=== PATIENT | female | born 1955 | race Caucasian/White ===

== ENCOUNTER → 2023-12-20 | Outpatient (CLI) | payer MEDICARE ==
--- NOTE | 2023-12-21 07:39 | MM ---
Reason for Exam: Screening (asymptomatic). Patient History: Menarche at age 11. First Full-Term at age 15. Postmenopausal. Patient used Hormonal Contraceptives for 2 years. Risk Values: Yodit 5 year model risk: 1.2%. NCI Lifetime model risk: 3.9%. Prior Study Comparison: No prior studies available for comparison. Tissue Density: The breasts are heterogeneously dense, which may obscure small masses. Findings: Analyzed By CAD. Asymmetric density 12:00 position right breast 3.2 cm from the nipple. Additional views are recommended. No suspicious calcifications within either breast. Overall Assessment: Incomplete: need additional imaging evaluation, BI-RAD 0 Management: Diagnostic Mammogram of the right breast. . Patient should continue monthly self-breast exams. A clinical breast exam by your physician is recommended on an annual basis. This exam should not preclude additional follow-up of suspicious palpable abnormalities. Note on Yodit scores and lifetime risk: 1. A Yodit score greater than 3% is considered moderate risk. If this is the case, consider specialist referral to assess eligibility for a risk reducing agent. 2. If overall lifetime risk for the development of breast cancer is 20% or higher, the patient may qualify for future screening with alternating mammogram and breast MRI. Electronically signed and approved by: Abraham Somers M.D. Radiologis
== END | disposition home or self-care (01) ==
LOC: RADMAMWWP 16:26
PROVIDERS: ATTEND Family Medicine
DX: Z12.31 Encounter for screening mammogram for malignant neoplasm of breast (principal); R92.333 Mammographic heterogeneous density, bilateral breasts; Z78.0 Asymptomatic menopausal state
CPT/HCPCS: 77063; 77067

== ENCOUNTER → 2023-12-24 | Outpatient (CLI) | payer MEDICARE ==
--- NOTE | 2023-12-24 14:35 | MM ---
Reason for Exam: Additional evaluation requested from abnormal screening. Last screening mammogram was performed less than 1 month ago. Patient History: Menarche at age 11. First Full-Term at age 15. Postmenopausal. Patient used Hormonal Contraceptives for 2 years. Risk Values: Yodit 5 year model risk: 1.2%. NCI Lifetime model risk: 3.9%. Prior Study Comparison: 12/20/2023 Bilateral MG 3D screening mammo w/cad, [facility]. Tissue Density: Right: The breasts are heterogeneously dense, which may obscure small masses. Findings: Analyzed By CAD. No evidence for persistent mass or distortion. Overall Assessment: Negative, BI-RAD 1 Management: Screening Mammogram of both breasts in 1 year. . Results were given to the patient verbally at the time of exam. Patient should continue monthly self-breast exams. A clinical breast exam by your physician is recommended on an annual basis. This exam should not preclude additional follow-up of suspicious palpable abnormalities. Note on Yodit scores and lifetime risk: 1. A Yodit score greater than 3% is considered moderate risk. If this is the case, consider specialist referral to assess eligibility for a risk reducing agent. 2. If overall lifetime risk for the development of breast cancer is 20% or higher, the patient may qualify for future screening with alternating mammogram and breast MRI. Electronically signed and approved by: Abraham Somers M.D. Radiologis
== END | disposition home or self-care (01) ==
LOC: RADMAMWWP 14:09
PROVIDERS: ATTEND Family Medicine
DX: R92.331 Mammographic heterogeneous density, right breast (principal); R92.8 Other abnormal and inconclusive findings on diagnostic imaging of breast; Z78.0 Asymptomatic menopausal state
CPT/HCPCS: 77065; G0279; 77061

== ENCOUNTER → 2024-12-28 | Outpatient (CLI) | payer MEDICARE ==
--- NOTE | 2024-12-29 13:28 | MM ---
Reason for Exam: Screening (asymptomatic). Last screening mammogram was performed 12 month(s) ago. Patient History: Menarche at age 11. First Full-Term at age 15. Postmenopausal. Patient used Hormonal Contraceptives for 2 years. Risk Values: Yodit 5 year model risk: 1.2%. NCI Lifetime model risk: 3.7%. Prior Study Comparison: 12/20/2023 Bilateral MG 3D screening mammo w/cad, [facility]. 12/24/2023 Right MG 3D work up w/cad RT, [facility]. Tissue Density: The breasts are heterogeneously dense, which may obscure small masses. Findings: Analyzed By CAD. There is no suspicious group of microcalcifications or new suspicious mass in either breast. Overall Assessment: Negative, BI-RAD 1 Management: Screening Mammogram of both breasts in 1 year. Patient should continue monthly self-breast exams. A clinical breast exam by your physician is recommended on an annual basis. This exam should not preclude additional follow-up of suspicious palpable abnormalities. Note on Yodit scores and lifetime risk: 1. A Yodit score greater than 3% is considered moderate risk. If this is the case, consider specialist referral to assess eligibility for a risk reducing agent. 2. If overall lifetime risk for the development of breast cancer is 20% or higher, the patient may qualify for future screening with alternating mammogram and breast MRI. [facility], , 12/29/2024 1:25 PM. Electronically signed and approved by: Cristina Tenorio M.D. Radiologist
== END | disposition home or self-care (01) ==
LOC: RADMAMWWP 13:40
PROVIDERS: ATTEND Family Medicine
DX: Z12.31 Encounter for screening mammogram for malignant neoplasm of breast (principal); R92.333 Mammographic heterogeneous density, bilateral breasts; Z78.0 Asymptomatic menopausal state; Z92.0 Personal history of contraception
CPT/HCPCS: 77063; 77067